=== PATIENT | female | born 1960 | race Caucasian/White ===

== ENCOUNTER → 2022-04-01 | Outpatient (CLI) | payer OTHER ==
--- NOTE | 2022-04-02 15:38 | RAD ---
EXAM: ULTRASOUND ABDOMEN COMPLETE CLINICAL HISTORY: Reason: ABNORMAL LIVER FUNCTION STUDIES /history of cholecystectomy. COMPARISON: None available. TECHNIQUE: Ultrasound of the upper abdomen was performed. FINDINGS: The tail of the pancreas is partially obscured by overlying bowel gas. No focal enlargement of the re st of the pancreas is seen. The liver measures 14.2 cm in length which is normal. There is increased echogenicity of the liver which may be seen with fatty infiltration of the liver. No hepatic mass is seen otherwise. Hepatopedal flow is seen within the main portal vein. The gallbladder is surgically a bsent. The extra hepatic bile duct measures 4 mm in caliber which is normal. The length of the right kidney is 9.6 cm. The length of the left kidney is 8.5 cm. No hydronephrosis or renal mass or perinephric fluid collection is seen. There is a small cyst of the mid aspect of the left kidney measuring 17 mm. The urinary bladder is not distended. The spleen measures 8.1 cm in sagar gth which is normal. No ascites is apparent. IMPRESSION: Fatty infiltration of the liver. Electronically signed by: Ángel Davis MD (04/02/2022 3:36 PM) [id number]
== END ==
LOC: US 15:37
PROVIDERS: ATTEND Nurse Practitioner Family
DX: K76.0 Fatty (change of) liver, not elsewhere classified (principal); N28.1 Cyst of kidney, acquired; R94.5 Abnormal results of liver function studies
CPT/HCPCS: 76700